=== PATIENT | male | born 1945 | race Caucasian/White ===

== ENCOUNTER → 2016-09-08 | Outpatient (CLI) | payer OTHER ==
[~2016-09-08] MED LIST: CIPR-255 PO; DUTA0.5C PO; FLM4 PO
--- NOTE | 2016-09-08 10:40 | DIAGNOSTIC IMAGING REPORT ---
KUB HISTORY: N20.0 Calculus of hoifsqF92.1 Benign prostatic hypertrophy with COMPARISON: KUB 09/10/2015. FINDINGS: The bowel gas pattern is unremarkable. There are no dilated loops of small bowel to suggest an obstruction. No renal calculi. No ureteral calculi. No pneumoperitoneum or pneumatosis. IMPRESSION: No renal or ureteral stones. Electronically signed by: Guillermo Yeh M.D. 09/08/2016 10:39 AM Dictated Date/Time: 09/08/2016 10:38 AM
== END ==
LOC: C.RAD 10:13
PROVIDERS: ATTEND Urology
DX: N20.0 Calculus of kidney (principal); N20.1 Calculus of ureter; R31.0 Gross hematuria; N40.1 Benign prostatic hyperplasia with lower urinary tract symptoms; R35.0 Frequency of micturition; R39.2 Extrarenal uremia